=== PATIENT | female | born 1945 | race Caucasian/White ===

== ENCOUNTER 2019-07-11 11:54 | Outpatient (CLI) | payer MEDICARE, BC, SELFPAY ==
--- NOTE | 2019-07-11 11:58 | MR_ITS ---
WS: [id number] MRI LEFT hip, noncontrast. Multiplane, multisequence imaging is performed through the pelvis and LEFT hip. HISTORY: Chronic hip pain. There is a large amount of edema throughout the LEFT femoral neck and head. On the T1 sequences there is marked decreased signal intensity, greatest involving the superior femoral head but also extendin g into the neck. There is flattening of the femoral head cortex. Small amount of edema in the hip tatyana nt. Mild narrowing of the RIGHT hip joint but no edema. Sacrum is intact. MR/MR hip LT wo con* [id number] IMPRESSION: 1. Large amount of edema within the LEFT femoral head and neck. 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 2. Cortical irregularity over the femoral head but no loose body or fracture is identified.
== END 2019-07-11 11:55 | disposition home or self-care (01) ==
LOC: RADSHAW 11:54
PROVIDERS: Family Provider Family Medicine; PCP Family Medicine; Visit Provider Family Medicine
DX: M87.852 Other osteonecrosis, left femur (principal); M25.552 Pain in left hip; G89.29 Other chronic pain
CPT/HCPCS: 73721

== ENCOUNTER → 2020-11-23 13:34 | Outpatient (BNVA) | payer MEDICARE, BC, SELFPAY | PROVIDERS: Family Provider Family Medicine; PCP Family Medicine; Referring Provider Family Medicine; Visit Provider Nurse Practitioner Family | DX: N39.0 Urinary tract infection, site not specified (principal) | CPT/HCPCS: 81003 ==

== ENCOUNTER 2024-08-28 10:21 | Outpatient (CLI) | payer MEDICARE, BC, SELFPAY ==
--- NOTE | 2024-08-28 10:20 | MM_ITS ---
WS: [id number] BILATERAL SCREENING DIGITAL TOMOSYNTHESIS MAMMOGRAM WITH CAD HISTORY: SCREENING COMPARISON: 04/24/2015 Bilateral CC and MLO views with tomosynthesis and synthetic mammography submitted. Computer aided detection analyzed. Breast composition: There are scattered areas of fibroglandular density. No suspicious masses, microcalcifications or architectural distortion. Benign coarse calcifications in each breast. MM/MM scr BI tomosynthesis [id number] IMPRESSION: BI-RADS: 2 - Benign. FOLLOW UP: 1 Year Follow-up
== END 2024-08-28 10:22 | disposition home or self-care (01) ==
PROVIDERS: PCP Family Medicine; Visit Provider Family Medicine
DX: Z12.31 Encounter for screening mammogram for malignant neoplasm of breast (principal); R92.323 Mammographic fibroglandular density, bilateral breasts; R92.1 Mammographic calcification found on diagnostic imaging of breast
CPT/HCPCS: 77063; 77067